=== PATIENT | female | born 1970 | race Caucasian/White ===

== ENCOUNTER → 2019-03-31 | Outpatient (CLI) | payer BC ==
[~2019-03-31] MED LIST: ASACOL400 MG PO; NOHOMEMEDICATIONS
== END ==
LOC: M.ULTRA 03-09 10:14
DX: M19.072 Primary osteoarthritis, left ankle and foot (principal); R22.42 Localized swelling, mass and lump, left lower limb; Z88.2 Allergy status to sulfonamides